=== PATIENT | female | born 1960 | race Caucasian/White ===

== ENCOUNTER 2016-07-12 01:47 | Inpatient (IN) | payer OTHER ==
[2016-07-12] VITALS (8 sets, daily range): BP systolic 107–152; BP diastolic 71–97
[~2016-07-12] VITALS: Ht 175.3 cm; Wt 90.7 kg
[~2016-07-12 01:47] MED LIST: ALBUTEROL2.5 MG/0.1 IH; CHANTIX1 MG PO; DUONEB 2.5-0.5 M3 ML INH; HYDROCODONE-CH473 M1 PO; MUCINEX DM TABL1 TA1 PO; PREDNISONE 10 M10 MG PO; PREDNISONE 20 M20 MG PO; PREDNISONE50 MG PO; PROAIR HFA8.5 GM IH; PROTONIX40 M1 PO; TESSALON PERLE100 MG PO; VENTOLIN HFA 1818 GM INH; ZOFRAN ODT4 MG PO
[2016-07-12 02:34] LABS: ABSOLUTE NEUTROPHILS 8.9 thou/uL (1.4-8.2); BASOPHILS 0.5 % (0.0-2.0); EOSINOPHILS 3.3 % (0.0-3.0); HEMATOCRIT 47.1 % (37.0-47.0); HEMOGLOBIN 15.6 gm/dL (12.0-15.0); LYMPHOCYTES 18.4 % (24.0-44.0); MCH 29.9 pg (26.0-34.0); MCHC 33.1 g/dL (28.0-37.0); MCV 90.4 fL (80.0-100.0); MONOCYTES 6.2 % (1.0-8.0); PLATELET COUNT 232 thou/uL (150-400); POLYS 71.6 % (36.0-66.0); RBC 5.21 mil/uL (4.20-5.00); RDW 13.4 % (10.5-14.5); WBC 12.4 thou/uL (4.0-11.0)
[2016-07-12 02:42] LABS: CALCIUM 8.7 mg/dL (8.5-10.1); CREATININE 0.9 mg/dL (0.6-1.0); POTASSIUM 3.9 mmol/L (3.5-5.1)
[2016-07-12 02:54] LABS: MANUAL DIFF NO
[2016-07-12] MEDS ORDERED: SYMBICORT80 MCG/4.1 (06:37)
[2016-07-12] MEDS ORDERED: CHANTIX1 MG ×2 (06:41→06:42)
[2016-07-12 20:06] LABS: GLYCOHEMOGLOBIN (HGB A1C) 5.8 % (4.8-5.6)
[2016-07-13 04:14] VITALS: BP 116/84
[2016-07-13 06:36] LABS: HEMATOCRIT 44.5 % (37.0-47.0); HEMOGLOBIN 14.6 gm/dL (12.0-15.0); MCH 29.8 pg (26.0-34.0); MCHC 32.9 g/dL (28.0-37.0); MCV 90.6 fL (80.0-100.0); PLATELET COUNT 227 thou/uL (150-400); RBC 4.91 mil/uL (4.20-5.00); RDW 13.3 % (10.5-14.5); WBC 16.4 thou/uL (4.0-11.0)
[2016-07-13 06:37] LABS: MANUAL DIFF YES
[2016-07-13 06:54] LABS: CREATININE 0.8 mg/dL (0.6-1.0); POTASSIUM 4.1 mmol/L (3.5-5.1)
[2016-07-13 08:01] VITALS: BP 137/65
[2016-07-13 09:20] LABS: ABSOLUTE NEUTROPHILS 14.4 thou/uL (1.4-8.2); TOTAL CELL COUNT 100
[2016-07-13 09:21] LABS: ANISOCYTOSIS SLIGHT
[2016-07-13 11:41] VITALS: BP 101/50
[2016-07-13 16:22] VITALS: BP 126/54
[2016-07-13 20:00] VITALS: BP 120/63
[2016-07-14 04:00] VITALS: BP 92/48
[2016-07-14 07:28] VITALS: BP 105/63
[2016-07-14 12:07] VITALS: BP 100/44
[2016-07-14 16:10] VITALS: BP 113/68
[2016-07-14 21:26] VITALS: BP 129/93
[2016-07-15 05:55] VITALS: BP 115/49
[2016-07-15 08:21] VITALS: BP 115/80
[2016-07-15 11:44] VITALS: BP 106/49
[2016-07-15 15:55] VITALS: BP 113/64
[2016-07-15 20:05] VITALS: BP 114/82
[2016-07-16 04:30] VITALS: BP 126/75
[2016-07-16 08:00] VITALS: BP 109/60
[2016-07-16 11:53] VITALS: BP 114/66
[2016-07-16 16:56] VITALS: BP 127/82
[2016-07-16 19:35] VITALS: BP 116/79
[2016-07-17 04:21] VITALS: BP 118/70
[2016-07-17 08:09] VITALS: BP 113/57
[2016-07-17] MEDS ORDERED: VENTOLIN HFA 1818 GM INH (08:55)
[2016-07-17] MEDS ORDERED: DUONEB 2.5-0.5 M3 ML INH (08:55)
[2016-07-17] MEDS ORDERED: TRAMADOL 50 MG50 MG PO (08:55)
[2016-07-17] MEDS ORDERED: GUAIFENESIN/COD10 M1 PO (08:56)
[2016-07-17] MEDS ORDERED: PULMICORT0.5 MG/21 INH (08:56)
[2016-07-17] MEDS ORDERED: GLUCOPHAGE500 MG PO (08:57)
[2016-07-17] MEDS ORDERED: PREDNISONE 20 M20 MG PO (08:57)
[2016-07-17] MEDS ORDERED: LEVAQUIN 500 M500 M2 PO (08:58)
[2016-07-17 11:33] VITALS: BP 120/77
[2016-07-17 13:08] VITALS: BP 120/77
== END 2016-07-17 14:55 | disposition home or self-care (01) | DRG 189 ==
LOC: ER 01:47 → 3N 03:19 → EROBS 03:19 → 3N 04:34
PROVIDERS: Emergency Medicine; Family Medicine; Nurse Practitioner
DX: J96.01 Acute respiratory failure with hypoxia (principal); J44.1 Chronic obstructive pulmonary disease with (acute) exacerbation; B37.0 Candidal stomatitis; F90.9 Attention-deficit hyperactivity disorder, unspecified type; Z88.0 Allergy status to penicillin; Z88.6 Allergy status to analgesic agent; Z87.442 Personal history of urinary calculi; Z87.891 Personal history of nicotine dependence; J20.9 Acute bronchitis, unspecified; Z83.6 Family history of other diseases of the respiratory system; Z82.0 Family history of epilepsy and other diseases of the nervous system
CPT/HCPCS: 10094; 10096

== ENCOUNTER 2016-10-17 22:54 | Inpatient (IN) | payer OTHER ==
[~2016-10-17] VITALS: Ht 175.3 cm; Wt 94.3 kg
--- NOTE | ~2016-10-17 | EKG ---
[place] [address] [facility] [place] [address] ELECTROCARDIOGRAM REPORT Name: ALENA LOUISE Room #: [facility].R.#: [id number] Admission: Attend Phys: Discharge: Date of : 56 Report #: [id number] THIS REPORT FOR: //name// [facility] ED Test Date: 2016-10-17 Test Time: 23:15:32 Pat Name: ALENA LOUISE Department: Room: Gender: F Information Systems Security Developer: monroe : 1960 Requested By: Peter Viera Order Number: [id number] MD: Measurements Intervals [place] Rate: 97 P: 80 CA: 122 QRS: 83 QRSD: 91 T: 259 QT: 405 QTc: 515 Interpretive Statements Sinus rhythm Atrial premature complexes Abnormal T, consider ischemia, diffuse leads Compared to ECG 07/21/2015 09:40:15 Atrial premature complex(es) now present Possible ischemia now present T-wave abnormality still present [email or web address] By: 2315 2315 Epiphany EpiphanyMD /EPI
--- NOTE | ~2016-10-17 | CATHLAB ---
[address] [address] INVASIVE PROCEDURE REPORT Name: ALENA LOUISE Room #: 208-P ADM IN M.R.#: [id number] Admission: 10/18/16 Attend Phys: Kandice Purcell Discharge: Date of : 56 Date of Service: 10/19/16 1511 Report #: [id number] THIS REPORT FOR: //name// APPROVED REPORT Patient Details Patient Status: In-Patient Room #: The patient is a 55 year-old female Event Personnel Ric Rodney Getter Operator, Ji Frausto RN, Stella Kirkpatrick RN RN, Juan Naqvi Aloi, Christine Monitor Procedures Performed Left Heart Cath w/or w/o Coronaries [id number] [facility] Indication Dyspnea, Chest pain Risk Factors Chronic Lung DiseaseHypercholesterolemia, Hypertension, Tobacco History () Procedure Narrative The Left Wrist^ was infiltrated with 1% Lidocaine subcutaneous anesthesia. A 6FR TRANSRADIAL GLIDESHEATH W/ NEEDLE #[id number] sheath was inserted into the Right Radial Artery^. Coronary angiography was performed using coronary diagnostic catheters. The right coronary system was accessed and visualized with a JR4 catheter. The left coronary system was accessed and visualized with a JL3.5 catheter. The left ventricle was accessed and visualized with a PIGTAIL catheter. Left ventricular/Aortic Valve gradient assessed via catheter pullback. Left ventriculogram was performed in 30 degree projection. Closure device was deployed with a Fr VASC BAND R 24CM #[id number]. The patient tolerated the procedure well and there were no complications associated with the procedure. There was no hematoma. Intraoperative Conscious Sedation Sedation start time: 9:43 Case end Time: 10:03 Fentanyl 25 mcg Versed 1 mg Fluoro Time: 2.07 minutes Dose: [address] [place] [address] INVASIVE PROCEDURE REPORT Name: ALENA LOUISE Room #: 208-[facility] IN .R.#: [id number] Admission: 10/18/16 Attend Phys: Kandice Purcell Discharge: Date of : 56 Date of Service: 10/19/16 1511 Report #: [id number] Contrast Type and Amount: Visipaque 105 ml Coronary Angiography The patient's coronary anatomy is right dominant. Diagnostic Cath Left Main Patent, no flow limiting lesions. LAD Patent, no flow limiting lesions. Circumflex Patent, no flow limiting lesions. Right Coronary Patent, no flow limiting lesions. Left Ventriculography The left ventricle is normal in size with low-normal contractility. The left ventricular ejection fraction is estimated to be 50%. Hemodynamics The aortic pressure is 115/78 mmHg with a mean of 78 mmHg. The left ventricular pressure is 110/15 mmHg with a mean of mmHg. The left ventricular end diastolic pressure is 21 mmHg. Conclusion 1. Angiographically normal coronary arteries. 2. Borderline lownormal LV systolic function. 3. Medical therapy is recommended. Recommendations Aggressive Medical Therapy <ELECTRONICALLY SIGNED> By: Ric Rodney MD 10/19/161510 10 10 Ric Rodney MD /INF
--- NOTE | ~2016-10-17 | 2DMMODE ---
[facility] [address] [place] [address] 2 D/M-MODE ECHOCARDIOGRAM Name: ALENA LOUISE Room #: 208-P ADM IN M.R.#: [id number] Admission: 10/18/16 Attend Phys: Kandice Purcell Discharge: Date of : 56 Date of Service: 10/18/16 1424 Report #: [id number] THIS REPORT FOR: //name// APPROVED REPORT Study performed: 10/18/2016 13:21:24 EXAM: Comprehensive 2D, Doppler, and color-flow Echocardiogram Patient Location: Echo lab Room #: 208 Status: routine Other Information Study Quality: Adequate/lung disease. Indications Short of breath, intermittent chest pain. COPD exacerbation. 2D Dimensions RVDd: 30.46 mm LVEF(%): 41.00 (>50%) IVSd: 8.59 (7-11mm) LVOT Diam: 20.54 (18-24mm) LVDd: 51.97 mm PWd: 9.08 (7-11mm) Ascending Ao: 31.63 (22-36mm) LVDs: 41.48 (25-40mm) Aortic Root: 31.96 mm Molina's LVEF: 41.00 % Volumes Left Atrial Volume (Systole) Single Plane 4CH: 19.45 mL Single Plane 2CH: 44.21 mL LA ESV Index: 15.00 mL/m2 Aortic Valve AoV Peak Audie.: 1.41 m/s AO Peak Gr.: 7.96 mmHg LVOT Max P.80 mmHg LVOT Max V: 1.10 m/s DAYNE Vmax: 2.57 cm2 Mitral Valve E/A Ratio: 0.8 MV Decel. Time: 130.20 ms MV E Max Audie.: 0.81 m/s MV A Audie.: 1.05 m/s MV PHT: 37.76 ms IVRT: 73.82 ms [facility] [address] [place] [address] 2 D/M-MODE ECHOCARDIOGRAM Name: ALENA LOUISE Room #: 208-P ADM IN .R.#: [id number] Admission: 10/18/16 Attend Phys: Kandice Purcell Discharge: Date of : 56 Date of Service: 10/18/16 1424 Report #: [id number] Pulmonary Valve PV Peak Audie.: 1.03 m/s PV Peak Gr.: 4.20 mmHg Pulmonary Vein P Vein S: 0.52 m/s P Vein D: 0.40 m/s P Vein S/D Ratio: 1.30 Tricuspid Valve RAP Estimate: 5.00 mmHg Left Ventricle The left ventricle is normal size. Hypokinesis of mid to basal inferolateral segment. There is normal left ventricular wall thickness. Left ventricular systolic function is mildly decreased. LVEF is 45-50%. Grade I - abnormal relaxation pattern. Right Ventricle The right ventricle is normal size. The right ventricular systolic function is normal. Atria The left atrium size is normal. The right atrium size is normal. Aortic Valve The aortic valve is normal in structure. No aortic regurgitation is present. There is no aortic valvular stenosis. Mitral Valve The mitral valve is normal in structure. There is no mitral valve regurgitation noted. No evidence of mitral valve stenosis. Tricuspid Valve The tricuspid valve is normal in structure. There is no tricuspid valve regurgitation noted. Pulmonic Valve The pulmonary valve is normal in structure. There is no pulmonic valvular regurgitation. Great Vessels The aortic root is normal in size. The ascending aorta is normal in size. IVC is normal in size and collapses >50% with inspiration. [facility] [address] [place] [address] 2 D/M-MODE ECHOCARDIOGRAM Name: ALENA LOUISE Room #: 208-P [facility] IN .R.#: [id number] Admission: 10/18/16 Attend Phys: Kandice Prucell Discharge: Date of : 56 Date of Service: 10/18/16 1424 Report #: [id number] Pericardium Small anterior pericardial effusion vs. fat pad noted in subcostal view. <Conclusion> The left ventricle is normal size. Left ventricular systolic function is mildly decreased. Grade I - abnormal relaxation pattern. The right ventricle is normal size. The left atrium size is normal. The aortic valve is normal in structure. The mitral valve is normal in structure. <ELECTRONICALLY SIGNED> By: Ric Rodney MD 10/18/16 1424 1424 1424 Ric Rodney MD /INF
[~2016-10-17 22:54] MED LIST changes: +CHANTIX1 MG; +GLUCOPHAGE500 MG PO; +GUAIFENESIN/COD10 M1 PO; +LEVAQUIN 500 M500 M2 PO; +PULMICORT0.5 MG/21 INH; +SYMBICORT80 MCG/4.1; +TRAMADOL 50 MG50 MG PO
[2016-10-17 22:57] VITALS: BP 128/98
[2016-10-17 23:20] LABS: ABSOLUTE NEUTROPHILS 9.9 thou/uL (1.4-8.2); BASOPHILS 0.7 % (0.0-2.0); EOSINOPHILS 3.9 % (0.0-3.0); HEMATOCRIT 40.8 % (37.0-47.0); HEMOGLOBIN 13.6 gm/dL (12.0-15.0); LYMPHOCYTES 18.7 % (24.0-44.0); MCH 30.7 pg (26.0-34.0); MCHC 33.4 g/dL (28.0-37.0); MONOCYTES 7.2 % (1.0-8.0); PLATELET COUNT 247 thou/uL (150-400); POLYS 69.5 % (36.0-66.0); RBC 4.43 mil/uL (4.20-5.00); RDW 13.5 % (10.5-14.5); WBC 14.3 thou/uL (4.0-11.0)
[2016-10-17 23:21] LABS: MANUAL DIFF NO
[2016-10-17 23:25] LABS: CALCIUM 9.2 mg/dL (8.5-10.1); CREATININE 0.9 mg/dL (0.6-1.0); POTASSIUM 3.8 mmol/L (3.5-5.1)
[2016-10-17 23:35] LABS: TROPONIN-I 1.4 ng/mL (<0.04-0.07)
[2016-10-18 02:20] LABS: APTT 25.2 Seconds (24.5-32.8); PROTIME 9.6 Seconds (9.3-11.4)
[2016-10-18 03:33] VITALS: BP 110/68
[2016-10-18 04:00] VITALS: BP 123/80
[2016-10-18 05:07] LABS: CHOLESTEROL 192 mg/dL (<200); HDL CHOLESTEROL 76 mg/dL (>40); LDL CHOLESTEROL 102 mg/dL (<100); TC:HDL 2.5 Ratio (Not establshd); TRIGLYCERIDE 72 mg/dL (<150); VLDL 14 mg/dL (<40)
[2016-10-18 05:10] LABS: SERUM ASSESSMENT Clear
[2016-10-18 08:10] VITALS: BP 102/70
[2016-10-18 17:15] VITALS: BP 111/78
[2016-10-18 19:59] VITALS: BP 125/67
[2016-10-18 22:17] VITALS: BP 110/56
[2016-10-19] VITALS (13 sets, daily range): BP systolic 98–138; BP diastolic 52–115
[2016-10-19 04:29] LABS: CALCIUM 9.5 mg/dL (8.5-10.1); POTASSIUM 3.8 mmol/L (3.5-5.1)
[2016-10-20 00:13] VITALS: BP 111/67
[2016-10-20 00:52] VITALS: BP 111/67
[2016-10-20 03:29] LABS: HEMATOCRIT 38.8 % (37.0-47.0); HEMOGLOBIN 12.8 gm/dL (12.0-15.0); MCH 30.2 pg (26.0-34.0); MCV 91.4 fL (80.0-100.0); RBC 4.24 mil/uL (4.20-5.00); RDW 13.4 % (10.5-14.5); WBC 16.3 thou/uL (4.0-11.0)
[2016-10-20 03:41] LABS: ALBUMIN 3.1 g/dL (3.4-5.0); CALCIUM 9.1 mg/dL (8.5-10.1); CREATININE 0.9 mg/dL (0.6-1.0); PHOSPHORUS 3.5 mg/dL (2.5-4.9)
[2016-10-20 05:03] VITALS: BP 111/67
[2016-10-20 07:29] VITALS: BP 98/53
[2016-10-20] MEDS ORDERED: AMBIEN 5 MG TABL5 M1 PO ×2 (09:07→10:02)
[2016-10-20] MEDS ORDERED: PREDNISONE 5 MG5 MG PO (09:10)
[2016-10-20] MEDS ORDERED: LEVAQUIN 500 M500 M2 PO (09:41)
[2016-10-20] MEDS ORDERED: DUONEB 2.5-0.5 M3 ML INH (10:02)
[2016-10-20] MEDS ORDERED: ROBITUSSIN DM118 ML PO (10:02)
[2016-10-20 11:25] VITALS: BP 110/53
[2016-10-20 13:13] VITALS: BP 110/53
== END 2016-10-20 14:57 | disposition home or self-care (01) | DRG 280 ==
LOC: ER 22:54 → 2N 10-18 02:33 → EROBS 10-18 02:33 → 2N 10-18 03:32
PROVIDERS: Emergency Medicine; Hospitalist; Internal Medicine Cardiovascular Disease; Nurse Practitioner Family
PROC: B2151ZZ Fluoroscopy of Left Heart using Low Osmolar Contrast (ICD-10-PCS; principal; 2016-10-19)
PROC: B2111ZZ Fluoroscopy of Multiple Coronary Arteries using Low Osmolar Contrast (ICD-10-PCS; principal; 2016-10-19)
PROC: 4A023N7 Measurement of Cardiac Sampling and Pressure, Left Heart, Percutaneous Approach (ICD-10-PCS; principal; 2016-10-19)
DX: I21.4 Non-ST elevation (NSTEMI) myocardial infarction (principal); J96.21 Acute and chronic respiratory failure with hypoxia; J44.1 Chronic obstructive pulmonary disease with (acute) exacerbation; F90.9 Attention-deficit hyperactivity disorder, unspecified type; N28.9 Disorder of kidney and ureter, unspecified; E78.00 Pure hypercholesterolemia, unspecified; F17.210 Nicotine dependence, cigarettes, uncomplicated; F12.90 Cannabis use, unspecified, uncomplicated; E11.9 Type 2 diabetes mellitus without complications; Z71.6 Tobacco abuse counseling; Z79.899 Other long term (current) drug therapy; Z88.6 Allergy status to analgesic agent; Z88.0 Allergy status to penicillin; Z99.81 Dependence on supplemental oxygen; Z79.4 Long term (current) use of insulin; Z83.6 Family history of other diseases of the respiratory system
CPT/HCPCS: 10081

== ENCOUNTER → 2017-01-06 | Outpatient (CLI) | payer OTHER ==
[~2017-01-06] MED LIST changes: +AMBIEN 5 MG TABL5 M1 PO; +PREDNISONE 5 MG5 MG PO; +ROBITUSSIN DM118 ML PO
--- NOTE | ~2017-01-06 | SLE ---
[facility] [address] [place] [address] POLYSOMNOGRAPHY STUDY Name: ALENA MCGRAW Room #: [facility]..#: [id number] Admission: 01/06/17 Attend Phys: Horace Curry MD Discharge: Date of : 56 Report #: [id number] THIS REPORT FOR: //name// CC: Horace Curry FAM physician/PCP BETH ASTUDILLO HISTORY: A 56-year-old, height 5 feet 8, weight 204 pounds. Usually goes to bed 9:30-10:00, gets out of bed at 6:00 a.m., does not feel refreshed, positive daytime somnolence. COMMENTS: Premature atrial contractions noted. By: 1716 1727 Horace Curry MD /nt
== END ==
LOC: SLEEPLAB 11:04
DX: G47.33 Obstructive sleep apnea (adult) (pediatric) (principal); J44.9 Chronic obstructive pulmonary disease, unspecified

== ENCOUNTER → 2017-05-26 | Outpatient (CLI) | payer OTHER ==
[~2017-05-26] MED LIST changes: +CARVEDILOL3.125 MG PO; +CYCLOBENZAPRINE5 MG PO; +DOXYCYCLINE 10100 MG PO; +LEVAQUIN 750 M750 MG PO; +LISINOPRIL5 MG PO; +NYSTATIN100000 UNI SW&SWALLOW; +SPIRIVA INH
== END ==
LOC: RAD 14:06 → BC 14:17 → RAD 14:18
DX: Z12.31 Encounter for screening mammogram for malignant neoplasm of breast (principal)

== ENCOUNTER 2017-06-12 12:52 | Inpatient (IN) | payer OTHER ==
[~2017-06-12] VITALS: Ht 175.3 cm; Wt 90.7 kg
--- NOTE | ~2017-06-12 | EKG ---
[address] [place] [address] ELECTROCARDIOGRAM REPORT Name: ALENA MCGRAW Room #: 463- ADM IN M.R.#: [id number] Admission: 06/12/17 Attend Phys: Tania Harkins Discharge: Date of : 56 Report #: [id number] THIS REPORT FOR: //name// [facility] Test Date: 2017-06-14 Test Time: 01:00:06 Pat Name: ALENA MORILLO Department: Room: 463 Gender: F Business Process Engineer: snehal : 1960 Requested By: Joy Jasso Order Number: [id number] MD: Avery Oconnor Measurements Intervals [place] Rate: 103 P: 78 KS: 134 QRS: 75 QRSD: 91 T: 20 QT: 335 QTc: 439 Interpretive Statements Sinus tachycardia Nonspecific ST segment abnormality Compared to ECG 06/12/2017 13:15:07 No significant change was found Electronically Signed On 06-14-2017 9:53:36 CDT by Avery Oconnor [email or web address] <ELECTRONICALLY SIGNED> By: Avery Oconnor MD, [facility] 06/14/17 0953 Avery Oconnor MD, [facility] /EPI
--- NOTE | ~2017-06-12 | EKG ---
[address] [address] ELECTROCARDIOGRAM REPORT Name: ALENA MCGRWA Room #: 463-P ADM IN M.R.#: [id number] Admission: 06/12/17 Attend Phys: Tania Harkins Discharge: Date of : 56 Report #: [id number] THIS REPORT FOR: //name// [facility] ED Test Date: 2017-06-12 Test Time: 13:15:07 Pat Name: ALENA JONESER Department: Room: [facility] Gender: F Flow Specialist: Shaan RIZZO : 1960 Requested By: Mercedes Garcia Order Number: [id number] MD: Goran Abarca Measurements Intervals [place] Rate: 105 P: 72 LA: 127 QRS: 78 QRSD: 88 T: 13 QT: 332 QTc: 439 Interpretive Statements Sinus tachycardia Probable left atrial enlargement Borderline T wave abnormalities Compared to ECG 01/12/2017 10:12:48 T-wave abnormality now present Electronically Signed On 06-12-2017 21:24:11 CDT by Goran Abarca [email or web address] <ELECTRONICALLY SIGNED> By: Goran Abarca MD 06/12/17 2124 1315 1315 Goran Abarca MD /EPI
[~2017-06-12 12:52] MED LIST changes: -CARVEDILOL3.125 MG PO; -DOXYCYCLINE 10100 MG PO; -LISINOPRIL5 MG PO; -NYSTATIN100000 UNI SW&SWALLOW
[2017-06-12 12:55] VITALS: BP 120/84
[2017-06-12 13:26] LABS: BE(vivo) -1.2 mmol/L (-2 to +3); HCO3 23.9 mmol/L (22.0-26.0); PCO2 41.7 mmHg (35.0-45.0); PO2 91.7 mmHg (80.0-100.0); pH 7.377 (7.360-7.450); sO2 96.9 % (92.0-98.0)
[2017-06-12 13:52] LABS: ABSOLUTE NEUTROPHILS 6.1 thou/uL (1.4-8.2); BASOPHILS 0.9 % (0.0-2.0); EOSINOPHILS 4.7 % (0.0-3.0); HEMATOCRIT 41.3 % (37.0-47.0); HEMOGLOBIN 13.6 gm/dL (12.0-15.0); LYMPHOCYTES 19.7 % (24.0-44.0); MCHC 33.1 g/dL (28.0-37.0); MCV 90.8 fL (80.0-100.0); MONOCYTES 7.2 % (1.0-8.0); PLATELET COUNT 231 thou/uL (150-400); POLYS 67.5 % (36.0-66.0); RBC 4.54 mil/uL (4.20-5.00); RDW 13.8 % (10.5-14.5)
[2017-06-12 13:59] LABS: CALCIUM 9.3 mg/dL (8.5-10.1); CREATININE 0.9 mg/dL (0.6-1.0); POTASSIUM 4.2 mmol/L (3.5-5.1)
[2017-06-12 15:15] VITALS: BP 120/84
[2017-06-12 15:18] VITALS: BP 120/84
[2017-06-12 15:50] VITALS: BP 123/53
[2017-06-12 19:49] VITALS: BP 174/104
[2017-06-13 03:13] VITALS: BP 124/76
[2017-06-13 08:06] VITALS: BP 129/81
[2017-06-13 15:28] VITALS: BP 144/83
[2017-06-13 17:00] VITALS: BP 144/83
[2017-06-13 19:41] VITALS: BP 141/79
[2017-06-14 04:15] VITALS: BP 107/57
[2017-06-14 09:27] VITALS: BP 120/57
[2017-06-14 15:52] VITALS: BP 116/90
[2017-06-14 20:00] VITALS: BP 134/77
[2017-06-14 23:30] VITALS: BP 140/74
[2017-06-15 01:07] LABS: GLYCOHEMOGLOBIN (HGB A1C) 5.9 % (4.8-5.6)
[2017-06-15 04:00] VITALS: BP 106/58
[2017-06-15 07:30] VITALS: BP 116/69
[2017-06-15 12:28] VITALS: BP 128/85
[2017-06-15 15:24] VITALS: BP 134/84
[2017-06-15 19:15] VITALS: BP 146/87
[2017-06-16 04:45] VITALS: BP 117/73
[2017-06-16 08:28] VITALS: BP 137/91
[2017-06-16] MEDS ORDERED: NYSTATIN100000 UNI SW&SWALLOW (09:16)
[2017-06-16] MEDS ORDERED: PREDNISONE 5 MG5 MG PO (09:17)
[2017-06-16] MEDS ORDERED: DOXYCYCLINE 10100 MG PO (09:17)
[2017-06-16 17:18] VITALS: BP 137/91
== END 2017-06-16 18:10 | disposition home or self-care (01) | DRG 190 ==
LOC: ER 12:52 → EROBS 14:30 → 4W 14:30 → 3W 15:39 → 4W 15:52 → 4N 06-14 18:44 → ENTRNSPT 06-16 18:05 → 4N 06-16 18:10
PROVIDERS: Emergency Medicine; Hospitalist
DX: J44.0 Chronic obstructive pulmonary disease with (acute) lower respiratory infection (principal); J96.21 Acute and chronic respiratory failure with hypoxia; J45.901 Unspecified asthma with (acute) exacerbation; J44.1 Chronic obstructive pulmonary disease with (acute) exacerbation; J20.8 Acute bronchitis due to other specified organisms; F90.9 Attention-deficit hyperactivity disorder, unspecified type; R73.03 Prediabetes; E66.9 Obesity, unspecified; F41.9 Anxiety disorder, unspecified; Z79.51 Long term (current) use of inhaled steroids; Z79.899 Other long term (current) drug therapy; Z88.6 Allergy status to analgesic agent; Z88.0 Allergy status to penicillin; Z68.29 Body mass index [BMI] 29.0-29.9, adult; Z87.891 Personal history of nicotine dependence
CPT/HCPCS: 10045; 10790; 27000

== ENCOUNTER 2018-12-15 01:18 | Inpatient (IN) | payer OTHER ==
[~2018-12-15] VITALS: Ht 152.4 cm; Wt 104.2 kg
[2018-12-15 01:18] VITALS: BP 124/103
[~2018-12-15 01:18] MED LIST changes: +CARVEDILOL3.125 MG PO; +DOXYCYCLINE 10100 MG PO; +LISINOPRIL5 MG PO; +NYSTATIN100000 UNI SW&SWALLOW
[2018-12-15 02:04] LABS: ANION GAP 11 mmol/L (7-16); BUN 10 mg/dL (7-18); CALCIUM 9.6 mg/dL (8.5-10.1); CHLORIDE 102 mmol/L (98-107); CO2 27 mmol/L (21-32); GLUCOSE 154 mg/dL (74-106); POTASSIUM 4.9 mmol/L (3.5-5.1); SODIUM 140 mmol/L (136-145)
[2018-12-15 02:10] LABS: BE(vivo) 0.4 mmol/L (-2 to +3); HCO3 26.7 mmol/L (22.0-26.0); PCO2 49.1 mmHg (35.0-45.0); PO2 79.4 mmHg (80.0-100.0); pH 7.353 (7.360-7.450); sO2 95.1 % (92.0-98.0)
[2018-12-15 02:14] LABS: ALBUMIN 4.1 g/dL (3.4-5.0); MAGNESIUM 1.9 mg/dL (1.8-2.4); SGOT 27 U/L (15-37); SGPT 20 U/L (30-65); TOTAL BILIRUBIN 0.4 mg/dL (<0.1-1.0); TOTAL PROTEIN 8.6 g/dL (6.4-8.2); TROPONIN-I <0.06 ng/mL (<0.06)
[2018-12-15 03:06] LABS: BASOPHILS 0.4 % (0.0-2.0); EOSINOPHILS 0.9 % (0.0-3.0); HEMATOCRIT 37.3 % (37.0-47.0); HEMOGLOBIN 12.1 gm/dL (12.0-15.0); LYMPHOCYTES 10.4 % (24.0-44.0); MCH 30.2 pg (26.0-34.0); MCHC 32.5 g/dL (28.0-37.0); MCV 92.8 fL (80.0-100.0); MONOCYTES 4.2 % (1.0-8.0); PLATELET COUNT 184 thou/uL (150-400); POLYS 84.1 % (36.0-66.0); RBC 4.02 mil/uL (4.20-5.00); RDW 13.7 % (10.5-14.5); WBC 10.7 thou/uL (4.0-11.0)
[2018-12-15 03:13] VITALS: BP 128/83
[2018-12-15 03:19] VITALS: BP 126/77
--- NOTE | 2018-12-15 06:02 | NUR ---
PATIENTS CARES WERE ASSUMED AT THE TIME OF TRANSFER TO THE FLOOR. PATIENT WAS ADMITTED AND MEDS WERE STARTED. THE ANTIBIOTIC WAS NOT GIVEN IN ER DUE TO PATIENT STATED SHE WAS ALLERGIC TO PCN. HOULY ROUNDING WAS DONE. THE BED IS IN A LOW AND LOCKED POSITION.
[2018-12-15 07:03] VITALS: BP 107/63
[2018-12-15 08:49] LABS: CHOLESTEROL 194 mg/dL (<200); HDL CHOLESTEROL 52 mg/dL (>40); LDL CHOLESTEROL 132 mg/dL (<100); TC:HDL 3.7 Ratio (Not establshd); TRIGLYCERIDE 53 mg/dL (<150); VLDL 11 mg/dL (<40)
[2018-12-15 08:52] LABS: SERUM ASSESSMENT Clear
--- NOTE | 2018-12-15 10:32 | NUR ---
ASSESSMENT: CM REVIEWED CHART AND MET WITH PATIENT AT THE [facility]. PT WAS ADMITTED WITH COPD/HYPOXIA. PT REPORTS SHE LIVES IN A HOME ALONE. PT REPORTS SHE IS FULLY INDEPENDENT WITH ADLS AND AMBULATION. PT REPORTS SHE NORMALLY WEARS 3L OF OXYGEN AT HOME SUPPLIES THROUGH [employer]. PT REPORTS SHE ALSO HAS A NEBULIZER. PT STATES SHE HAS A GRAB BAR AND SHOWER CHAIR. CM DISCUSSED ROLE. PT STATES SHE SHOULD HAVE NO NEEDS FROM CM AT DISCHARGE. CM WILL CONTINUE TO FOLLOW TO ASSIST NEEDED.
[2018-12-15 15:58] VITALS: BP 126/69
[2018-12-15 19:43] VITALS: BP 106/69
[2018-12-16 03:12] VITALS: BP 132/67
--- NOTE | 2018-12-16 04:33 | NUR ---
ASSUMED CARE AT 1900. ASSESSMENTS COMPLETED. PT REPORTS FEELING MILDLY DIZZY WITH ACTIVITY, MADE PT A FALL RISK AND PLACED BED ALARM ON. HAS DRY HACKING COUGH WITHOUT SPUTUM, COUGH WORSE AFTER ACTIVITY OR TALKING FOR A LONG TIME. PT REPORTS THE COUGHING EXACERBATES HER PAIN, CAUSING ABD SPASMS; HAVE GIVEN IV PAIN MED ONCE AND PO ONCE. REPORTS SLIGHT NAUSEA, BUT IS EATING AND DRINKING A LOT OVERNIGHT AND BELCHING FREQUENTLY. GIVEN AMBIEN AT HS, AND PT HAS BEEN ABLE TO SLEEP FOR SEVERAL HOURS OVERNIGHT. NO OTHER CONCERNS, WILL CONTINUE TO MONITOR.
[2018-12-16 07:13] VITALS: BP 116/81
--- NOTE | 2018-12-16 14:04 | NUR ---
CONSULTED TO PLACE A MIDLINE FOR THE PATIENT NEEDING IV ACCESS, THIS PATIENT REFUSED A PERIPHERAL IV AND INSISTING ON PICC PLACEMENT. DISCUSSED DIFFERENCE BETWEEN PICC AND MIDLINE. THE IV VESICANT DOXCYCLINE WAS DISCONTINUED AND MIDLINE ACCESS IS APPROPRIATE.. ATTEMPTED TO SEE PATIENT X2 AND SHE REFUSED PLACEMENT UNTIL HER SHOWER AND LUNCH WAS DONE. 1330 RETURNED TO THE PATIENTS ROOM AND DISCUSSED MIDLINE PLACEMENT, ASSURED THE PATIENT MULTIPLE TIMES THE MIDLINE IS A MORE APPROPRIATE LINE FOR HER, LESS INVASIVE AND DECREASED RISK OF INFECTION..SHE DID AGREE TO PLACEMENT AFTER HER RISKS AND BENIFITS WERE DISCUSSED. SHE WANTED IT PLACED ON THE LUE. THE LUE BASILIC WAS WIDLEY PATENT. A #4F POWER MIDLINE WAS PLACED PER HOSPITAL POLICY. LINE WAS TRIMMED TO 12CM WITH BRISK BLOOD RETURN AND FLUSHED EASILY. LINE SECURED AND RELEASED FOR USE
[2018-12-16 16:42] VITALS: BP 136/92
--- NOTE | 2018-12-16 17:38 | NUR ---
ASSUMED CARE OF PT AT 0700. PT AOX4 SOMEWHAT ANXIOUS AT TIMES. BILAT WHEEZES ON 3L NC. SHOWERED. MID PIA PLACED PER PHYSICIAN. DOXYCYCLINE CHANGED TO PO. UP W/ SBA ASSIST. LESS DIZZINESS PER PATIENT. VITALS STABLE. PT PROGRESSING TOWARD POC GOALS.
[2018-12-16 20:00] VITALS: BP 130/68
--- NOTE | 2018-12-17 01:03 | NUR ---
requested that she take her ambien a little later tonight at midnight. she is alert and oriented, complains that the steriods are giving her insomnia. she continues to have pain to her left rib cage, fern with coughing. she stated that it will be a cramping with pain. the iv pain medication is effective for pain control.
[2018-12-17 06:10] VITALS: BP 129/82
[2018-12-17 07:52] VITALS: BP 135/79
--- NOTE | 2018-12-17 13:15 | EKG ---
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: GOLDEN : 1960 Requested By: Nic Doss Order Number: [id number] MD: Avery Oconnor Measurements Intervals [place] Rate: 133 P: 94 NC: 133 QRS: 87 QRSD: 87 T: -60 QT: 349 QTc: 520 Interpretive Statements Sinus tachycardia Nonspecific ST segment abnormality Prolonged QT interval Compared to ECG 07/08/2017 06:27:14 ST segment abnormality is now present Prolonged QT interval now present Electronically Signed On 12-17-2018 13:15:00 CDT by Avery Oconnor [email or web address] <ELECTRONICALLY SIGNED> By: Avery Oconnor MD, [facility] 12/17/18 1315 0124 0124 Avery Oconnor MD, [facility] /EPI
--- NOTE | 2018-12-17 15:09 | NUR ---
care of pt assumed at this am @ ~0700. pt noted to be sleeping, awakened for vs and breakfast. pt w/ use of oxygen (home use of 2-3lt nc) and co dyspnea w/ activity (ambulation to bthrm and back). pt w/ a non productive cough and does cause her to have bilateral intercostal muscle discomfort. pt denies n/v/d, w/ good appetite for food and fluid. pt visiting w/ several family members and friends this am. pt requests to be left alone late this afternoon to watch a movie on her tv. pt verbalized frustration re: missing flutiscone spray (to nares) this am and rn's need to re order another one from pharmacy.
[2018-12-17 15:27] VITALS: BP 116/79
[2018-12-17 19:23] VITALS: BP 135/74
--- NOTE | 2018-12-18 07:21 | NUR ---
Pt. concern about left upper arm midline , small amount of bld dge in dressing which she stated has increased since IV team placed it. No swelling in left arm. Midline accessed , cleaned with prevantics antiseptic , able to withdraw blood and flushed easily. Offered to change dressing but she would prefer IV team to take a look at it, day RN informed. She requested sleep med and pain med with some relief. She slept fair during the night except for a few times when monitor checked for lost signal and interference. Up ad ben in room with steady gait. O2 at 3L/NC , she does get short of breath with exertion. No other concerns voiced. Making progress towards care plan goals.
[2018-12-18 07:55] VITALS: BP 148/90
[2018-12-18 10:52] LABS: BE(vivo) 3.6 mmol/L (-2 to +3); HCO3 28.4 mmol/L (22.0-26.0); PCO2 43.5 mmHg (35.0-45.0); PO2 85.7 mmHg (80.0-100.0); pH 7.432 (7.360-7.450); sO2 96.7 % (92.0-98.0)
[2018-12-18 13:46] LABS: GLYCOHEMOGLOBIN (HGB A1C) 5.9 % (4.8-5.6)
--- NOTE | 2018-12-18 13:46 | NUR ---
Assess due to high BMI 44.9=extreme class III obesity. Admit with COPD exacerbation, and hx acute/chronic heart failure. BG 101-171 past few days, likely aggravated with steroids however physician concerned this may be diabetes-an A1C is pending. Wt is up 18 lb over 2 years. Encouraged healthy eating habits, limiting added sugars and carb control. Pt eager to go home. Low nutrition risk
--- NOTE | 2018-12-18 13:50 | NUR ---
ON-GOING ASSESSMENT: PT IS SLOWLY PROGRESSING TOWARDS DISCHARGE GOALS. PT IS NOT YET MEDICALLY STABLE FOR DISCHARGE. CM WILL CONTINUE TO FOLLOW TO ASSIST NEEDED.
--- NOTE | 2018-12-18 15:39 | NUR ---
care of pt assumed this am @~0700. pt noted to be enjoying her up ad ben status. pt w/ use of oxygen 3lt nc (baseline), does co soa w/ activity (walk about room and bthrm). pt co that her lue midline is bothering her and request iv team to view and reassure her today. pt is hopeful for dc today or tomorrow as she feels she is back to baseline. pt encouraged to get out of her room and ambulate in hallways w/ portable oxygen tank, but she has chosen to watch tv and movies in her room. pt w/ a good appetite for food. pt denies n/v/d. pt states that her "coughing spells" are better today, no need for cough medicine thus far.
--- NOTE | 2018-12-18 16:01 | NUR ---
pt walking around floor, pt stopped by cm office and stated " i think [facility] called and because on pain medication i missed their call and might have told them i did not need anything and last time they visit in my room, i would like them to visit or call me about medicaid"/ovi. cm passed on information to 3w cm team and will have referral sent to [facility] per pt request.
[2018-12-18 16:23] VITALS: BP 132/90
[2018-12-18 19:24] VITALS: BP 159/76
[2018-12-19 03:41] VITALS: BP 117/72
[2018-12-19 07:48] VITALS: BP 152/96
[2018-12-19 08:31] LABS: HEMATOCRIT 42.5 % (37.0-47.0); HEMOGLOBIN 13.8 gm/dL (12.0-15.0); MCH 29.9 pg (26.0-34.0); MCHC 32.5 g/dL (28.0-37.0); MCV 91.8 fL (80.0-100.0); RBC 4.63 mil/uL (4.20-5.00); RDW 13.5 % (10.5-14.5); WBC 13.6 thou/uL (4.0-11.0)
[2018-12-19 08:38] LABS: CALCIUM 9.1 mg/dL (8.5-10.1); CREATININE 0.9 mg/dL (0.6-1.0); POTASSIUM 4.2 mmol/L (3.5-5.1)
[2018-12-19] MEDS ORDERED: PREDNISONE 5 MG5 MG PO (09:15)
[2018-12-19] MEDS ORDERED: DOXYCYCLINE HYC50 MG PO (09:15)
[2018-12-19] MEDS ORDERED: FLEXERIL PO (09:16)
[2018-12-19] MEDS ORDERED: PROMETHAZINE-C473 ML PO (09:31)
--- NOTE | 2018-12-19 11:30 | NUR ---
PATIENT STATES THAT SHE WANTS TO LEAVE. DR PIÑA INFORMED AND ORDERS NOTED. PATIENT INFORMED THAT HER PROVIDER WOULD BE FILLING OUT HER DISCHARGE PAPER WORK SO SHE IS CONTENT TO STAY FOR HER DISCHARGE.
--- NOTE | 2018-12-19 11:58 | NUR ---
Following for d/c planning needs. Received order from physician to arrange home health. Reviewed chart and spke with nurse and pt. Pt does not want home health at this time. Explained benefits and pt said she is not interested. Pt does not want strangers in her home. Pt has Medicare A & B. She said she had Medicaid in the past, but it was dropped because she is over on income. Explained spenddown to pt. No other needs identified.
[2018-12-19 13:17] VITALS: BP 152/96
[2018-12-19] MEDS ORDERED: ALBUTEROL2.5 MG/31 INH (13:35)
--- NOTE | 2018-12-19 15:35 | NUR ---
PATIENT DISCHARGED TO HOME VIA W/C WITH O2 AT 3L/NC. UP AND ABOUT IN THE ROOM WITHOUT SOB. DISCHARGE INSTRUCTIONS AND MEDS REVIEWED WITH PATIENT WHO VERBALIZED UNDERSTANDING.
[2018-12-19 21:10] LABS: ADENOVIRUS Negative (Negative); INFLUENZA A Negative (Negative); INFLUENZA B Negative (Negative); METAPNEUMOVIRUS Negative (Negative); PARAINFLUENZA 1 Negative (Negative); PARAINFLUENZA 2 Negative (Negative); PARAINFLUENZA 3 Negative (Negative); RHINOVIRUS Negative (Negative); RSV A Negative (Negative); RSV B Negative (Negative)
== END 2018-12-19 14:06 | disposition home or self-care (01) | DRG 291 ==
LOC: ER 01:18 → 3W 02:47 → EROBS 02:47 → 3W 03:21
PROVIDERS: Emergency Medicine; Internal Medicine; Nurse Practitioner Acute Care; ADMIT Hospitalist
PROC: 05HY33Z Insertion of Infusion Device into Upper Vein, Percutaneous Approach (ICD-10-PCS; principal; 2018-12-16)
DX: I50.9 Heart failure, unspecified (principal); J96.21 Acute and chronic respiratory failure with hypoxia; J96.22 Acute and chronic respiratory failure with hypercapnia; J44.1 Chronic obstructive pulmonary disease with (acute) exacerbation; Z68.41 Body mass index [BMI] 40.0-44.9, adult; Q61.5 Medullary cystic kidney; I42.9 Cardiomyopathy, unspecified; N61.0 Mastitis without abscess; F90.9 Attention-deficit hyperactivity disorder, unspecified type; R73.9 Hyperglycemia, unspecified; R00.0 Tachycardia, unspecified; R07.81 Pleurodynia; E66.01 Morbid (severe) obesity due to excess calories; Z60.2 Problems related to living alone; T44.7X6A Underdosing of beta-adrenoreceptor antagonists, initial encounter; T46.4X6A Underdosing of angiotensin-converting-enzyme inhibitors, initial encounter; R05 Cough; T46.4X5A Adverse effect of angiotensin-converting-enzyme inhibitors, initial encounter; F41.1 Generalized anxiety disorder; E53.8 Deficiency of other specified B group vitamins; E88.81 Metabolic syndrome and other insulin resistance; T38.0X5A Adverse effect of glucocorticoids and synthetic analogues, initial encounter; F15.959 Other stimulant use, unspecified with stimulant-induced psychotic disorder, unspecified; Z87.442 Personal history of urinary calculi; Z79.899 Other long term (current) drug therapy; Z88.6 Allergy status to analgesic agent; Z88.0 Allergy status to penicillin; Z87.891 Personal history of nicotine dependence; Z83.6 Family history of other diseases of the respiratory system; Z84.89 Family history of other specified conditions; Z99.81 Dependence on supplemental oxygen; I25.2 Old myocardial infarction; Y92.89 Other specified places as the place of occurrence of the external cause
CPT/HCPCS: 10879; 27000

== ENCOUNTER → 2020-08-22 | Outpatient (CLI) | payer OTHER ==
[~2020-08-22] MED LIST changes: +ALBUTEROL2.5 MG/31 INH; +DOXYCYCLINE HYC50 MG PO; +FLEXERIL PO; +PROMETHAZINE-C473 ML PO
== END ==
LOC: BC 13:17
DX: N60.82 Other benign mammary dysplasias of left breast (principal); N60.81 Other benign mammary dysplasias of right breast; N64.4 Mastodynia; N63.20 Unspecified lump in the left breast, unspecified quadrant; N63.10 Unspecified lump in the right breast, unspecified quadrant

== ENCOUNTER 2021-02-17 19:10 | Emergency (ER) | payer OTHER ==
[~2021-02-17] VITALS: Ht 175.3 cm; Wt 100.2 kg
[2021-02-17 19:40] LABS: ABSOLUTE NEUTROPHILS 7.1 thou/uL (1.4-8.2); EOSINOPHILS 2.7 % (0.0-3.0); HEMATOCRIT 46.2 % (37.0-47.0); HEMOGLOBIN 15.2 gm/dL (12.0-15.0); LYMPHOCYTES 24.9 % (24.0-44.0); MCH 30.5 pg (26.0-34.0); MCV 92.6 fL (80.0-100.0); MONOCYTES 6.3 % (1.0-8.0); PLATELET COUNT 225 thou/uL (150-400); POLYS 65.1 % (36.0-66.0); RBC 4.99 mil/uL (4.20-5.00)
[2021-02-17 19:48] LABS: ANION GAP 8 mmol/L (7-16); BUN 12 mg/dL (7-18); CALCIUM 8.6 mg/dL (8.5-10.1); CHLORIDE 103 mmol/L (98-107); CO2 26 mmol/L (21-32); CREATININE 0.9 mg/dL (0.6-1.0); GLUCOSE 127 mg/dL (74-106); POTASSIUM 4.1 mmol/L (3.5-5.1); SODIUM 137 mmol/L (136-145)
[2021-02-17 19:59] LABS: ALBUMIN 3.5 g/dL (3.4-5.0); DIRECT BILIRUBIN < 0.1 mg/dL (<0.1-0.2); LIPASE 134 U/L (73-393); SGOT 17 U/L (15-37); SGPT 23 U/L (14-59); TOTAL BILIRUBIN 0.3 mg/dL (0.2-1.0); TOTAL PROTEIN 7.4 g/dL (6.4-8.2)
[2021-02-17] MEDS ORDERED: LIDODERM1 EACH TOP ×2 (21:31→21:40)
[2021-02-17] MEDS ORDERED: ZANAFLEX4 MG PO ×2 (21:31→21:40)
[2021-02-17 21:40] VITALS: BP 146/99
--- NOTE | 2021-02-18 08:51 | EKG ---
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: delaney : 1960 Requested By: Rick Pearce Order Number: [id number] MD: Avery Oconnor Measurements Intervals [place] Rate: 102 P: 60 OK: 120 QRS: 69 QRSD: 84 T: 2 QT: 337 QTc: 439 Interpretive Statements Sinus arrhythmia Atrial premature complex Borderline repolarization abnormality Compared to ECG 12/15/2018 01:24:45 Atrial premature complex(es) now present Prolonged QT interval no longer present Electronically Signed On 02-18-2021 8:51:25 EQUIPMENT HIRE MANAGER by Avery Oconnor [email or web address] <ELECTRONICALLY SIGNED> By: Avery Oconnor MD, [facility] 02/18/21 0851 14 14 Avery Oconnor MD, [facility] /EPI
== END 2021-02-17 21:48 | disposition home or self-care (01) ==
LOC: ER 19:10
PROVIDERS: Emergency Medicine
DX: M75.51 Bursitis of right shoulder (principal); F12.90 Cannabis use, unspecified, uncomplicated; J44.9 Chronic obstructive pulmonary disease, unspecified; Z87.891 Personal history of nicotine dependence; Z88.0 Allergy status to penicillin; Z79.899 Other long term (current) drug therapy; Z88.6 Allergy status to analgesic agent